=== PATIENT | female | born 1980 | race Caucasian/White ===

== ENCOUNTER 2020-05-30 11:14 | Outpatient (REF) | payer OTHER, SELFPAY ==
[2020-07-04 12:21] LABS: Thin Prep Source Cervix
[2020-07-09 14:06] LABS: HPV mRNA E6/E7 Not Detected
== END 2020-05-30 11:15 | disposition home or self-care (01) ==
LOC: HO.LAB 11:14
PROVIDERS: PCP Internal Medicine; Visit Provider Obstetrics & Gynecology
DX: Z01.419 Encounter for gynecological examination (general) (routine) without abnormal findings (principal); R23.2 Flushing
CPT/HCPCS: 36415; 87624; 87625; 88141; 88142

== ENCOUNTER 2020-05-31 10:40 | Outpatient (REF) | payer OTHER, SELFPAY ==
[2020-05-31 12:30] LABS: Thyroid Stimulating Hormone 2.26 uIU/mL (0.32-4.0)
[2020-06-01 09:42] LABS: Follicle Stimulating Hormone 4.3 mIU/mL; Lutenizing Hormone 7.3 mIU/mL
== END 2020-05-31 10:41 | disposition home or self-care (01) ==
LOC: HO.LAB 10:40
PROVIDERS: PCP Internal Medicine; Visit Provider Obstetrics & Gynecology
DX: R23.2 Flushing (principal)
CPT/HCPCS: 36415; 83001; 83002; 84443

== ENCOUNTER 2020-08-15 16:28 | Outpatient (REF) | payer OTHER, SELFPAY ==
--- NOTE | ~2020-08-15 | MM_ITS ---
EXAMINATION: MM SCREENING DIGITAL BREAST TOMOSYNTHESIS, BILATERAL CLINICAL INFORMATION: Screening. Asymptomatic. The lifetime risk of breast cancer based on the Tyrer-Cuzick Model is 12.3%. COMPARISON: Mammography: None TECHNIQUE: Digital breast tomosynthesis is performed in both the craniocaudal and mediolateral oblique views along with computer-aided detection (CAD). Synthesized 2D images are generated from the tomosynthesis. FINDINGS: There are scattered areas of fibroglandular density (ACR BI-RADS breast composition Category b). There are no significant masses, abnormal calcifications, or other abnormalities. Scattered skin calcifications are seen bilaterally. MM/MM tomosynthesis screening BI IMPRESSION: No specific mammographic evidence to suggest malignancy. ASSESSMENT: BI-RADS 1: Negative RECOMMENDATION: Routine annual mammography screening. This patient's information was entered into a reminder system with a target due date for their next mammogram.
== END 2020-08-15 16:29 | disposition home or self-care (01) ==
LOC: HO.MAMMO 16:28
PROVIDERS: Visit Provider Obstetrics & Gynecology
DX: Z12.31 Encounter for screening mammogram for malignant neoplasm of breast (principal)
CPT/HCPCS: 77063; 77067

== ENCOUNTER 2021-03-17 14:10 | Outpatient (REF) | payer OTHER, SELFPAY ==
[2021-03-18 03:55] LABS: CT PCR NOT DETECTED (Not Detect.); NG PCR NOT DETECTED (Not Detect.)
[2021-03-18 11:11] LABS: BV Int Neg Control Negative (Negative); BV Int Pos Control Positive (Positive)
== END 2021-03-17 14:11 | disposition home or self-care (01) ==
LOC: HO.LAB 14:10
PROVIDERS: PCP Internal Medicine; Visit Provider Obstetrics & Gynecology
DX: Z11.3 Encounter for screening for infections with a predominantly sexual mode of transmission (principal); N90.89 Other specified noninflammatory disorders of vulva and perineum
CPT/HCPCS: 87480; 87491; 87510; 87591; 87660; 99212

== ENCOUNTER 2021-03-21 10:01 | Outpatient (AMB) | payer OTHER, SELFPAY ==
[2021-03-21 10:01] VITALS: BP 122/70; PULSE 96; TEMP 36.3; O2SAT 98; BMI 34.9
--- NOTE | 2021-03-21 10:01 | MHC.PC.OV ---
Vital Signs 03/21/21 10:01 Height 5 ft 2 in Weight 191 lb BMI 34.9 BP 122/70 Pulse 96 Pulse Source Pulse Oximeter Temp 97.4 F Pulse Oximetry (%) 98 Oxygen Delivery Method Room Air Intake Visit Reasons: anxiety/ panic attacks Childcare Center Administrator Required: No Accompanied by: Self / Same As Patient Allergies lorazepam Adverse Reaction (Intermediate, Verified 02/12/23 17:18) increased nausea Medication List - Last Reconciled 03/21/21 by Zhang Decker MD hydroxyzine HCl Take 1 to 2 tablets PO 3 times a day PRN; 30 days metronidazole 500 mg PO BID 7 days mirtazapine 15 mg PO BEDTIME 30 days terconazole 0.8% 1 appful vaginal BEDTIME 3 days Tobacco use date assessed: 03/21/21 HPI anxiety/ panic attacks HPI Details Patient comes in today for a follow up visit - has not been back since October 2019 Has had a couple of incidents of pilonidal cyst/abscess since and ended up going to the ER at the end of December 2020 for the same issue that required I & D States that she continues to break out often and currently has another pilonidal cyst for about a week now Adds that she has been experiencing increased anxiety lately and has had a couple of episodes of panic attacks over the past few days Was on Mirtazapine 15 mg Q HS and Lorazepam PRN in the past but states that she is on no Rx currently other than Flagyl and Terconazole vaginal cream that were prescribed by [facility] about a week ago - is not really sure why she is no longer taking these Rx but recalls that she feels very nauseous every time she takes Lorazepam Reports (+) recurrent headaches as well lately - has (+) Hx of migraine headaches and used to take Topiramate at bedtime for BAH prophylaxis Denies any dizziness Denies any chest pains, no SOB No nausea/vomiting, no abdominal pain No change in bowel habits noted [facility] Medical History (Updated 02/13/23 @ 04:51 by Zhang Decker MD) Anxiety Migraine Obesity (BMI 30-39.9) Smoker Hidradenitis suppurativa Sacroiliac joint dysfunction Panic attack Tinea versicolor Surgical History History of excision of pilonidal cyst (~08/12/21) H/O rectal sphincterotomy History of bilateral tubal ligation History of Family History Maternal Grandmother Breast cancer Other Mental health problem Substance abuse Social History Housing: Apartment Alcohol intake: never Patient Tobacco Use Status: Current everyday Tobacco user Tobacco use type: Cigar Cigarettes Per Day: 10 e-Cigarette/Vaping Use: Never Used Second Hand Smoke Exposure: Yes service: No Current occupational status: employed Sexual orientation: Straight/Heterosexual Gender identity: Female Cognitive needs: No Hearing needs: No Vision needs: No Questionnaire PHQ-9 Over the last 2 weeks, how often have you been bothered by any of the following problems? 1. Little interest or pleasure in doing things: not at all 2. Feeling down, depressed, or hopeless: not at all 3. Trouble falling or staying asleep, or sleeping too much: not at all 4. Feeling tired or having little energy: not at all 5. Poor appetite or overeating: not at all 6. Feeling bad about yourself - or that you are a failure or have let yourself or your family down: not at all 7. Trouble concentrating on things, such as reading the newspaper or watching television: not at all 8. Moving or speaking so slowly that other people could have noticed. Or the opposite - being so fidgety or restless that you have been moving around a lot more than usual: not at all 9. Thoughts that you would be better off or of hurting yourself in some way: not at all Total score: 0 Depression Screening Interpretation: Negative 30149 - PHQ-9 Billing: Yes Source: Developed by Drs. Boom Odonnell, Vanessa Taylor, Roland Arreola and colleagues, with an educational shane from [employer]. Thrive Questionnaire Date Thrive assessed: 03/21/21 I am a: Patient What is your living situation today?: I have a steady place to live Within the past 12 months, did the food you bought not last and you didn't have the money to get more?: Never true Within the past 12 months, did you worry whether your food would run out before you got money to buy more?: Never true Do you have trouble paying for medicines?: No Do you have trouble getting transportation to medical appointments?: No Do you have trouble paying your heating and electricity bill?: No Do you have trouble taking care of your child, family member or friend?: No Do you have trouble with day-to-day activities such as bathing, preparing meals, shopping, managing finances, etc.?: No Are you currently unemployed and looking for a job?: No Are you interested in more education?: No Currently or been in a relationship where the following occur: no concerns reported AUDIT C Alcohol Use Questionnaire (AUDIT-C) 1. How often do you have a drink containing alcohol?: Never 3. How often do you have six or more drinks on one occasion?: Never Total Score: 0 Score Reviewed/Action Taken: Yes EMELIA-7 AMB Questionnaire EMELIA-7 Date EMELIA - 7 assessed: 03/21/21 Feeling nervous, anxious, or on edge: 3 = Nearly every day Not being able to stop or control worryin = Nearly every day Worrying too much about different things: 3 = Nearly every day Trouble relaxin = Nearly every day Being so restless that it is hard to sit still: 3 = Nearly every day Becoming easily annoyed or irritable: 3 = Nearly every day Feeling afraid as if something awful might happen: 3 = Nearly every day Total EMELIA-7 score (0-4 normal; 5-9 mild; 10-14 moderate; 15-21 severe): 21 Source: Developed by Drs. Boom Odonnell, Vanessa Taylor, Roland Arreola and colleagues, with an educational shane from [employer]. Review of Systems Const Denies chills, Reports fatigue, Denies fever(s) and Reports headache(s) (recurrent) ENT Reports headache(s) (recurrent), Denies odynophagia, Denies sinus pain and Denies sore throat Card Denies chest pain, Denies palpitations and Denies dyspnea Resp Denies cough and Denies dyspnea GI Denies abdominal pain, Denies constipation, Denies heartburn, Denies diarrhea and Denies odynophagia Denies difficulty voiding, Denies nocturia and Denies dysuria Skin/Breast Details: recurrent pilonidal cyst/abscess - currently has a cyst for about a week now Neuro Reports headache(s) (recurrent) Psych Reports anxiety and Reports panic attacks Endo Reports fatigue and Denies palpitations Physical exam (Primary Care) Vital Signs: Last Vital Signs Temp 97.4 F 03/21/21 10:01 Pulse 96 03/21/21 10:01 BP 122/70 03/21/21 10:01 Pulse Ox 98 03/21/21 10:01 Oxygen Delivery Method Room Air 03/21/21 10:01 BMI result Body Mass Index 34.9 Tobacco/Smoking Status: Tobacco use Status Tobacco use date assessed 03/21/21 03/21/21 10:06 Patient Tobacco Use Status Current everyday Tobacco 03/21/21 10:06 PHQ-9: PHQ-9 Score PHQ-9: Total score 0 03/21/21 12:38 Depression Screening Interpretation: Negative Thrive Assessment: Date of Thrive Assessment Date Thrive assessed 03/21/21 03/21/21 10:06 Currently or been in a relationship where the following occur: no concerns reported Const General: no acute distress and alert HENMT Ears: TM's normal bilaterally Throat: Yes posterior oropharynx normal and Yes tonsils normal (no TP congestion noted) Neck Neck: Yes no lymphadenopathy and Yes supple Resp Auscultation: clear to auscultation bilaterally, no rales and no wheezes Cardio Rate: regular rate Rhythm: regular rhythm Heart sounds: no murmurs GI Palpation (GI): Soft to palpation, nontender and No hepatosplenomegaly present Extrem General: Yes no clubbing, cyanosis or edema Office Procedures Flu Questionnaire Does the patient have a severe egg allergy?: No Does the patient have severe life threatening allergies?: No Does the patient have a fever or illness today?: No Has the patient ever had Guillain-Sligo Syndrome?: No Has the patient ever had any past reaction to a flu shot?: No Comment: Patient states she received flu vaccine 2020 at [facility] Immunizations flu vacc [id number] 6mos up(PF) 60 mcg(15 mcgx4)/0.5 mL IM syringe Performing Provider: Zhang Decker MD [facility] Documented (not given) by: CHIDI Sanchez on 03/21/21 10:07 Reason Not Given: Received Previously Assessment and Plan Assessment & Plan (1) Chronic recurrent pilonidal cyst: Code(s): L05.91 - Pilonidal cyst without abscess Plan: Will refer her to surgery for consideration for I & D of her current pilonidal abscess (2) Migraine: Code(s): G43.909 - Migraine, unspecified, not intractable, without status migrainosus Qualifiers: Migraine type: unspecified Status migrainosus presence: without status migrainosus Intractability: not intractable Qualified Code(s): G43.909 - Migraine, unspecified, not intractable, without status migrainosus Plan: Reinforced avoidance of migraine triggers Will hold off on starting prophylactic Tx and can continue taking Ibuprofen PRN for now (3) Anxiety: Code(s): F41.9 - Anxiety disorder, unspecified Plan: Will start patient on Mirtazapine 15 mg Q HS and Hydroxyzine 25 mg 1 to 2 tablets TID PRN for her anxieyt (4) Smoker: Code(s): F17.200 - Nicotine dependence, unspecified, uncomplicated Plan: Counseled again on smoking cessation (5) Obesity (BMI 30-39.9): Code(s): E66.9 - Obesity, unspecified Plan: Reinforced diet/exercise as tolerated/lose weight Plan To return in 4 months for her annual physical examination Orders: Orders Influenza [id number] Immunization 03/21/21 Z23 - Encounter for immunization Referrals General Surgery Referral L05.91 - Pilonidal cyst without abscess Medications: New mirtazapine 15 mg PO BEDTIME 30 tabs 3RF 30 days hydroxyzine HCl Take 1 to 2 tablets PO 3 times a day PRN; 120 tabs 2RF anxiety 30 days Coding Level of Care Code Est Pt Level 4 (17171) Diagnoses Chronic recurrent pilonidal cyst L05.91 Migraine without status migrainosus, not intractable, unspecified migraine type G43.909 Migraine type: unspecified Status migrainosus presence: without status migrainosus Intractability: not intractable Anxiety F41.9 Smoker F17.200 Obesity (BMI 30-39.9) E66.9 Additional Codes PHQ-9 - 71665 - PHQ-9 Billing: Yes ([id number])
== END 2021-03-21 10:38 | disposition home or self-care (01) ==
LOC: HO.HMGH 10:01
PROVIDERS: PCP Internal Medicine; Visit Provider Internal Medicine
DX: L05.91 Pilonidal cyst without abscess (principal); G43.909 Migraine, unspecified, not intractable, without status migrainosus; F41.9 Anxiety disorder, unspecified; F17.210 Nicotine dependence, cigarettes, uncomplicated; Z23 Encounter for immunization; F17.200 Nicotine dependence, unspecified, uncomplicated; E66.9 Obesity, unspecified
CPT/HCPCS: 99214

== ENCOUNTER → 2021-04-22 15:14 | Outpatient (BNVA) | payer OTHER, SELFPAY | PROVIDERS: PCP Internal Medicine; Referring Provider Internal Medicine; Visit Provider Surgery | DX: L73.2 Hidradenitis suppurativa (principal) | CPT/HCPCS: 99202 ==

== ENCOUNTER 2021-05-20 11:30 | Outpatient (REF) | payer OTHER, SELFPAY ==
[2021-05-20 14:49] LABS: Binax Internal Control QC Valid; Binax Lot number: 9864; Binax Now Covid-19 Ag Negative (Negative)
== END 2021-05-20 11:31 | disposition home or self-care (01) ==
LOC: HO.LAB 11:30
PROVIDERS: Visit Provider Internal Medicine
DX: Z20.822 Contact with and (suspected) exposure to COVID-19 (principal)
CPT/HCPCS: 36415; C9803

== ENCOUNTER → 2021-06-26 09:45 | Outpatient (BNVA) | payer OTHER, SELFPAY | PROVIDERS: PCP Internal Medicine; Referring Provider Internal Medicine; Visit Provider Surgery | DX: L05.01 Pilonidal cyst with abscess (principal) | CPT/HCPCS: 99202 ==

== ENCOUNTER 2021-08-12 05:55 | Day surgery (SDC) | payer OTHER, SELFPAY ==
[2021-08-07 10:02] VITALS: BMI 36.0
--- NOTE | 2021-08-11 09:21 | HO.ANESPROP2 ---
Documented by User: Ronda Thompson NP 08/11/21 09:22 HPI - Anesthesia Eval Consult details Narrative: 41yo F for Excision Pilonidal Cyst,sacrococcygeal area PMFSH Active Problems Active Problems: All Active Problems (Updated 06/11/21 @ 17:01 by Sarah Olvera CNP) Cyst, pilonidal, with abscess (Acute) Hidradenitis axillaris (Acute) Chronic recurrent pilonidal cyst (Acute) Bacterial vaginosis (Acute) Vulvar lesion (Acute) Hot flashes (Acute) Well woman exam (Acute) Past Medical History Medical History Panic attack Sacroiliac joint dysfunction Tinea versicolor Family History Family History Maternal Grandmother Breast cancer Other Mental health problem Substance abuse Surgical History Surgical History H/O rectal sphincterotomy History of bilateral tubal ligation History of Social History Social History Housing: Apartment Alcohol intake: never Patient Tobacco Use Status: Current everyday Tobacco user Tobacco use type: Cigar Cigarettes Per Day: 10 Second Hand Smoke Exposure: Yes Use of substances other than those prescribed or required for medical reasons: No Are you DNR?: No Advance Directives: No Advance Directives Information Provided: Yes Recently lost weight without trying: No Nutrition Risks: No Nutritional Risk Patient : No (tubal ligation) service: No Current occupational status: employed Sexual orientation: Straight/Heterosexual Gender identity: Female Meds Allergies Allergy/AdvReac Type Severity Reaction Status Date / Time lorazepam AdvReac Intermediate increased Verified 06/26/21 10:02 nausea Exam Exam Date and Time: August 11, 2021 0921 Height,Weight and Vital Signs: Height 5 ft 2 in Weight 89.358 kg Assessment and Plan Assessment Anesthesia Assessment: Chart Reviewed Documented by User: Safia Marks MD 08/12/21 07:11 PMFSH Past Medical History Medical History Panic attack Sacroiliac joint dysfunction Tinea versicolor Family History Family History Maternal Grandmother Breast cancer Other Mental health problem Substance abuse Family history of problems with anesthesia: No Surgical History Surgical History H/O rectal sphincterotomy History of bilateral tubal ligation History of History of Problems with Anesthesia: No Social History Social History Housing: Apartment Alcohol intake: never Patient Tobacco Use Status: Current everyday Tobacco user Tobacco use type: Cigar Cigarettes Per Day: 10 Second Hand Smoke Exposure: Yes Use of substances other than those prescribed or required for medical reasons: No Are you DNR?: No Advance Directives: No Advance Directives Information Provided: Yes Recently lost weight without trying: No Nutrition Risks: No Nutritional Risk Patient : No (tubal ligation) service: No Current occupational status: employed Sexual orientation: Straight/Heterosexual Gender identity: Female Meds Allergies Allergy/AdvReac Type Severity Reaction Status Date / Time lorazepam AdvReac Intermediate increased Verified 06/26/21 10:02 nausea Exam Airway Mallampati Class: III TM Dist: >3cm Neck ROM: Full Assessment and Plan Assessment Anesthesia Assessment: Anesthesia Plan Discussed and Smoking Cess. Discussed Final Anesthetic Review Family History of Problems with Anesthesia: No History of Problems with Anesthesia: No NPO: Yes ASA Class: II Final Preanesthetic Review: No Changes in Pt Med Stat, Meds/Allgs Chart Reviewed and Consent Obtained/Reviewed Patient Risk: Intermediate Procedure Risk: Low Anesthetic Plan Anesthetic Plan: GA Disposition: Standard PACU
[2021-08-12] VITALS (8 sets, daily range): BP systolic 107–156; BP diastolic 66–87; PULSE 69–79; RESP 16–18; TEMP 36.3–37.3; O2SAT 98–100; BMI 36.6
[2021-08-12] MEDS: Lactated Ringers 1,000 ML 100 ML IVCONT (06:35)
--- NOTE | 2021-08-12 07:22 | P.HPSUR_ITS ---
Pre-Procedural Eval Section A Date of Service: 08/12/21 Section B Chief Complaint: pilonidal cyst with abscess Details of Present Illness: has has an abscess requring I and D, now here for formal excision of pilonidal cyst Relevant Family History (Specify if Yes): No Relevant Social History: None Present Medications: see Short Stay Collaborative assessment Medical History: No relevant PMH History of Previous Operations: No relevant previous surgery Allergies: Allergies Allergy/AdvReac Type Severity Reaction Status Date / Time lorazepam AdvReac Intermediate increased Verified 06/26/21 10:02 nausea Review of Systems Sugical H&P ROS: Negative: Constitution, Cardiovascular, Respiratory, Neurological, Psychiatric, Hem-Onc, Allergic/Immunologic, Gastrointestinal, Genitourinary, Musculoskeletal, Integumentary, Endocrine and Ey es/Ears/Nose/Throat Exam Surgical H&P Exam: Normal: HEENT, Normal: Heart, Normal: Lungs, Normal: Extremities, Normal: Abdomen, Normal: Skin and Normal: Neurological Exam Comment: pilonidal cyst sacrococcygeal area Plan Diagnosis/Plan: Unchanged I have reviewed the history and physical and performed a pertinent physical examination on my patient. No changes have occurred unless specified.
[2021-08-12] MEDS: Scopolamine 1.5 MG PATCH.TD.3 TRANSDERMA (07:35)
--- NOTE | 2021-08-12 08:28 | W.PM.OPN ---
Operative Note Operative Note Date of Service: 08/12/21 Narrative: Preop diagnosis: Pilonidal cyst, sacrococcygeal area Postop diagnosis: The same Procedure: Excision of pilonidal cyst sacrococcygeal area Surgeon: Giancarlo Vasquez MD Patient is a 41-year-old female was had an abscess on the sacrococcygeal area requiring I&D. She was seen in the office and she was noted have midline pits and an induration to the right of the midline in the sacrococcygeal area. I recommended formal excision to prevent recurrences.. She understood the technique of the procedure. She was aware of the risks, benefits, and alternatives. She was brought to the operating room and placed in prone position under general anesthesia via endotracheal tube. The buttocks were retracted with wide tape laterally. The sacrococcygeal area is prepped draped usual sterile fashion. A surgical time-out was done. The patient received cefazolin 2 g IV preoperatively. I infiltrated my planned line of incision with lidocaine 1%. I made my elliptical incision of surrounding the old I and D are to the right and around the midline pits in the gluteal cleft using blade 15. I carried down this incision through the full-thickness of skin and subcutaneous fat to excise the entire indurated area. This was sent as specimen. I cauterized oozing areas to achieve hemostasis. I then copiously irrigated. The excised area was about 7 cm long by about 4 cm wide. Once hemostasis was confirmed, I proceeded to develop flaps on both sides to achieve closure without tension. I therefore undermined subcutaneous layer. I then reapposed the thick subcutaneous layer with Dexon 3-0 interrupted sutures. Skin closure was achieved with alternating nylon 2-0 simple says interrupted sutures and vertical mattress sutures. The incision was infiltrated with Marcaine 0.25% for postop analgesia. Dressings were applied. The procedure was then completed. The patient tolerated procedure well. There were no complications noted . Initial final counts of sponges and instruments were correct. Estimated blood loss about 20 cc The patient was extubated without difficulty and transferred to the recovery room with stable vital signs.
[2021-08-12] MEDS: Acetaminophen 325 MG TABLET 650 MG PO (09:25)
[2021-08-12] MEDS: oxyCODONE HCl Immed Release 5 MG TABLET PO (09:26)
[2021-08-12] MEDS: Ketorolac Tromethamine 30 MG/ML VIAL 15 MG IVPUSH (09:28)
== END 2021-08-12 10:12 | disposition home or self-care (01) ==
PROVIDERS: PCP Internal Medicine; Visit Provider Surgery
PROC: (CPT 11771; principal; 2021-08-12 07:30)
DX: L05.01 Pilonidal cyst with abscess (principal); M53.3 Sacrococcygeal disorders, not elsewhere classified; B36.0 Pityriasis versicolor; F41.0 Panic disorder [episodic paroxysmal anxiety]; Z79.899 Other long term (current) drug therapy; F17.210 Nicotine dependence, cigarettes, uncomplicated; Z88.8 Allergy status to other drugs, medicaments and biological substances
CPT/HCPCS: 11771; 88304; J0690; J1100; J1885; J2250; J2405; J3010

== ENCOUNTER → 2021-08-25 10:12 | Outpatient (BNVA) | payer OTHER, SELFPAY | PROVIDERS: PCP Internal Medicine; Referring Provider Internal Medicine; Visit Provider Surgery | DX: Z09 Encounter for follow-up examination after completed treatment for conditions other than malignant neoplasm (principal); Z87.2 Personal history of diseases of the skin and subcutaneous tissue | CPT/HCPCS: 99212 ==

== ENCOUNTER 2021-11-26 13:35 | Outpatient (REF) | payer OTHER, SELFPAY | END 2021-11-26 13:36 | disposition home or self-care (01) | LOC: HO.LAB 13:35 | PROVIDERS: Visit Provider Obstetrics & Gynecology | DX: N76.4 Abscess of vulva (principal) | CPT/HCPCS: 10060; 56405; 87071; 87077; 87186; 87205; 99212 ==

== ENCOUNTER → 2022-01-27 10:47 | Outpatient (BNVA) | payer OTHER, SELFPAY | PROVIDERS: PCP Internal Medicine; Visit Provider Obstetrics & Gynecology | DX: N76.4 Abscess of vulva (principal); L73.2 Hidradenitis suppurativa | CPT/HCPCS: 99212 ==

== ENCOUNTER 2023-01-29 11:36 | Outpatient (AMB) | payer OTHER, SELFPAY ==
--- NOTE | 2023-01-29 11:45 | MHC.OFFVIS ---
Intake Vital Signs 01/29/23 11:49 Height 5 ft 3 in Weight 194 lb BMI 34.4 BP 120/74 Intake Visit Reasons: Pelvic pain Intake Note: The patient agreed to use of a medical coder during this encounter. Scribed for JERRICA Barth by Radha Pearce medical coder, on 01/29/2023 at 12:00 pm EST Vessel Captain Required: No Information Interpreted: non-clinical & clinical Network Intelligence Analyst: Network Intelligence Analyst Present (Jessica Brewer CHIDI) Accompanied by: Self / Same As Patient Allergies lorazepam Adverse Reaction (Intermediate, Verified 01/29/23 11:49) increased nausea HPI HPI Comments History of Present Illness Details She presents with complaints of vaginal pain and burning for the past 2 days. Also reports some pelvic pain. Reports her vagina feels swollen with intimacy. States she noticed a light pink discharge after intimacy with urination, x1 episode. Admits to pain with certain movements. Has Mirena IUD for cycle control. Denies bleeding, odors and discharge. Admits to hx of constipation, denies constipation currently. [facility] Medical History Sacroiliac joint dysfunction Panic attack Tinea versicolor Surgical History History of excision of pilonidal cyst (~08/12/21) H/O rectal sphincterotomy History of bilateral tubal ligation History of Family History Maternal Grandmother Breast cancer Other Mental health problem Substance abuse Social History Housing: Apartment Alcohol intake: never Patient Tobacco Use Status: Current everyday Tobacco user Tobacco use type: Cigar Cigarettes Per Day: 10 Second Hand Smoke Exposure: Yes service: No Current occupational status: employed Sexual orientation: Straight/Heterosexual Gender identity: Female Female Reproductive History Menstrual control method: progestin IUCD Review of Systems Const All systems reviewed & are unremarkable except as noted in HPI and below Reports pelvic pain Physical Exam Vital Signs: Last Vital Signs BP 120/74 01/29/23 11:49 BMI result Body Mass Index 34.4 Const General: cooperative, no acute distress, well developed and alert External Female Exam: normal external appearance Speculum Exam - Vagina: normal appearance of the vagina, abnormal vaginal discharge (chunky, white adherent discharge mixed with pink bloody mucous), erythematous (inflamation-edema) and other (pain with insertion of speculum) Speculum Exam - Cervix: normal appearance of the cervix and Other cervical findings present (IUD strings visible) Bimanual exam- vagina & uterus: normal bimanual exam, uterine size normal, uterine shape normal and non-tender Bimanual Exam- Adnexa, other: normal adnexae and no masses Results AMB Test Urine AMB Test Urine Negative Last Edit by Jessica Brewer CMA on 01/29/23 11:54 Results Reviewed Results Reviewed: Laboratory Last Values [facility] Clinic Negative 01/29/23 11:53 Assessment & Plan Assessment & Plan (1) Acute vaginitis: Code(s): N76.0 - Acute vaginitis Plan: Sx consistent with yeast infection. Rx for Diflucan sent to pharmacy. Instructions given to patient. Pelvic rest. No intimacy until sx resolve. Stay well hydrated. Contact office if sx do not improve for further evaluation and possible US. Due for Mirena exchange, will schedule at next visit. (2) Pelvic pain in female: Code(s): R10.2 - Pelvic and perineal pain Orders: Orders Bacterial Vaginosis Panel Today N76.0 - Acute vaginitis AMB HCG Urine Test Today Z32.02 - Encounter for test, result negative CT NG by PCR Today N76.0 - Acute vaginitis Medications: New fluconazole (Diflucan) may repeat dose in one week if symptoms do not resolve 150 mg PO ONCE 1 day PRN 2 tabs 0RF personal Coding Level of Care Code Est Pt Level 3 (75287) Diagnoses Acute vaginitis N76.0 Pelvic pain in female R10.2
[2023-01-29 11:49] VITALS: BP 120/74; BMI 34.4
== END 2023-01-29 12:12 | disposition home or self-care (01) ==
PROVIDERS: PCP Internal Medicine; Visit Provider Advanced Practice Midwife
DX: N76.0 Acute vaginitis (principal); R10.2 Pelvic and perineal pain; Z32.02 Encounter for pregnancy test, result negative
CPT/HCPCS: 99213

== ENCOUNTER 2023-01-29 11:36 | Outpatient (REF) | payer OTHER, SELFPAY ==
[2023-01-29 20:53] LABS: CT PCR NOT DETECTED (Not Detect.); NG PCR NOT DETECTED (Not Detect.)
[2023-01-30 12:50] LABS: BV Int Neg Control Negative (Negative); BV Int Pos Control Positive (Positive)
== END 2023-01-29 11:37 | disposition home or self-care (01) ==
LOC: HO.LNP 11:36
PROVIDERS: PCP Internal Medicine; Visit Provider Advanced Practice Midwife
DX: N76.0 Acute vaginitis (principal); R10.2 Pelvic and perineal pain
CPT/HCPCS: 0353U; 81025; 87480; 87510; 87660; 99212

== ENCOUNTER 2023-02-12 16:52 | Outpatient (AMB) | payer OTHER, SELFPAY ==
[2023-02-12 16:57] VITALS: BP 122/80; PULSE 80; O2SAT 96; BMI 32.5
--- NOTE | 2023-02-12 16:57 | A.OFFPC_ITS ---
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 Accompanied by: Self / Same As Patient Allergies lorazepam Adverse Reaction (Intermediate, Verified 02/12/23 17:18) increased nausea Medication List - Last Reconciled 02/12/23 by Zhang Decker MD fluconazole (Diflucan) 150 mg PO ONCE PRN 1 day levonorgestrel (Mirena) intrauterine terconazole 0.4% 1 appful vaginal BEDTIME 7 days Tobacco use date assessed: 02/12/23 Dental Screening Dental Screen Date: 02/12/23 Did you have a dental visit in the last 12 months?: No Did you have a dental problem in the last 6 months where you did not have access to dental care?: No Was dental information given to patient?: Patient has dentist HPI PE-abscess on inner thigh HPI Details Patient comes in today for her annual physical examination - was last seen by me almost 2 years ago in 03/2021 States that she has been experiencing a recurrent break out of perivaginal and perineal abscess and hidradenitis for the past few months Currently has some painful lesions just beside her vaginal area bilaterally as well as over the suprapubic area Has been seeing Dr. Jim, who has treated her with a few separate courses of antibiotics but often only with temporary relief of her symptoms and she has been advised (and referred) to see dermatology, who has reportedly gave her similar advice and recommendations given by Dr. Jim Recalls that she had a similar bout with pilonidal abscess last year and that her issues were finally resolved when she was referred to Dr. Vasquez and had I & D done on her abscess - is wondering if she can be referred again to Dr. Vasquez and he can help clear these up for her Adds that she has been experiencing brief but repeated bout of lightheadedness at night lately - states that these would tend to occur about 5 nights out a week and always at night Notes that her blood pressure would be around 90/50 during these episodes when she checks it She would then just lie down and stay in bed and her symptoms would gradually ease up after a few minutes Feels that she eats well (has been trying to eat healthier) and states that she does drink a lot of fluids so she does not think she is dehydrated Relates that she does feel fatigued often; denies any headaches Denies any chest pains or palpitations; no SOB noted No nausea/vomiting, no abdominal pain No change in bowel habits noted Denies any dysuria but reports (+) urinary frequency and sometimes also has nocturia She has not had an annual mammogram done since August 2020 and is scheduled to see gynecology at the end of next month (February 2023) to have her Mirena removed and also for her annual pap smear and 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 [facility] Medical History (Updated 02/12/23 @ 19:51 by Zhang Decker MD) Obesity (BMI 30-39.9) Smoker Hidradenitis suppurativa Sacroiliac joint dysfunction Panic attack Tinea versicolor Surgical History History of excision of pilonidal cyst (~08/12/21) H/O rectal sphincterotomy History of bilateral tubal ligation History of Family History Maternal Grandmother Breast cancer Other Mental health problem Substance abuse Social History Housing: Apartment Alcohol intake: never Patient Tobacco Use Status: Current everyday Tobacco user Tobacco use type: Cigar Cigarettes Per Day: 10 e-Cigarette/Vaping Use: Never Used Second Hand Smoke Exposure: Yes service: No Current occupational status: employed Sexual orientation: Straight/Heterosexual Gender identity: Female Cognitive needs: No Hearing needs: No Vision needs: No Questionnaire PHQ-9 Over the last 2 weeks, how often have you been bothered by any of the following problems? 1. Little interest or pleasure in doing things: not at all 2. Feeling down, depressed, or hopeless: not at all 3. Trouble falling or staying asleep, or sleeping too much: not at all 4. Feeling tired or having little energy: not at all 5. Poor appetite or overeating: not at all 6. Feeling bad about yourself - or that you are a failure or have let yourself or your family down: not at all 7. Trouble concentrating on things, such as reading the newspaper or watching television: not at all 8. Moving or speaking so slowly that other people could have noticed. Or the opposite - being so fidgety or restless that you have been moving around a lot more than usual: not at all 9. Thoughts that you would be better off or of hurting yourself in some way: not at all Total score: 0 Depression Screening Interpretation: Negative 01296 - PHQ-9 Billing: Yes Source: Developed by Drs. Boom Odonnell, Vanessa Taylor, Roland Arreola and colleagues, with an educational shane from [employer]. Thrive Questionnaire Date Thrive assessed: 02/12/23 I am a: Patient What is your living situation today?: I have a steady place to live Within the past 12 months, did the food you bought not last and you didn't have the money to get more?: Never true Within the past 12 months, did you worry whether your food would run out before you got money to buy more?: Never true Do you have trouble paying for medicines?: No Do you have trouble getting transportation to medical appointments?: No Do you have trouble paying your heating and electricity bill?: No Do you have trouble taking care of your child, family member or friend?: No Do you have trouble with day-to-day activities such as bathing, preparing meals, shopping, managing finances, etc.?: No Are you currently unemployed and looking for a job?: No Are you interested in more education?: No Please select the resources that you would like help with: None Currently or been in a relationship where the following occur: no concerns reported AUDIT C Alcohol Use Questionnaire (AUDIT-C) 1. How often do you have a drink containing alcohol?: Never 3. How often do you have six or more drinks on one occasion?: Never Total Score: 0 Score Reviewed/Action Taken: Yes EMELIA-7 AMB Questionnaire EMELIA-7 Date EMELIA - 7 assessed: 02/12/23 Feeling nervous, anxious, or on edge: 3 = Nearly every day Not being able to stop or control worryin = Nearly every day Worrying too much about different things: 3 = Nearly every day Trouble relaxin = Nearly every day Being so restless that it is hard to sit still: 3 = Nearly every day Becoming easily annoyed or irritable: 3 = Nearly every day Feeling afraid as if something awful might happen: 3 = Nearly every day Total EMELIA-7 score (0-4 normal; 5-9 mild; 10-14 moderate; 15-21 severe): 21 Source: Developed by Drs. Boom Odonnell, Vanessa Taylor, Roland Arreola and colleagues, with an educational shane from [employer]. EMELIA-7 Assessment Billing EMELIA-7 Assessment Tool: EMELIA-7 Assessment 63575 Review of Systems Const Denies chills, Reports fatigue, Denies fever(s), Denies headache(s) and Denies malaise Eyes Denies blurry vision, Denies change in vision, Denies irritation and Denies itchy eyes ENT Denies dysphagia, Denies dizziness (but reports recurrent lightheadedness at night - see HPI), Denies otalgia, Denies headache(s), Denies nasal congestion, Denies neck pain, Denies odynophagia, Denies sinus pain and Denies sore throat Card Denies chest pain, Denies rapid heart rate, Denies irregular heart rhythm, Denies palpitations and Denies dyspnea Resp Denies chest congestion, Denies cough, Denies dyspnea and Denies wheezing GI Denies abdominal pain, Denies bloating, Denies constipation, Denies dysphagia, Denies heartburn, Denies diarrhea, Denies nausea, Denies odynophagia and Denies vomiting Denies hematuria, Denies urinary frequency, Reports nocturia (at times), Denies dysuria, Denies urinary incontinence and Denies urinary urgency Musc Denies back pain, Denies arthralgias, Denies joint swelling, Denies muscle weakness and Denies neck pain Skin/Breast Details: (+) recurrent multiple painful boils and abscesses over the perineal, perivaginal , inguinal and suprapubic areas over the past few months Denies breast pain, Denies breast mass, Denies change in pigmentation, Reports lesions, Denies rash and Denies unusual bruising Neuro Denies dizziness (but reports recurrent lightheadedness at night - see HPI), Denies headache(s) and Denies paresthesias Psych Denies anxiety and Denies depression Endo Reports fatigue and Denies palpitations Narinder/Lymph Denies easy bruising Aller/Immun Denies itchy eyes and Denies wheezing Physical exam (Primary Care) Vital Signs: Last Vital Signs Pulse 80 02/12/23 16:57 BP 122/80 02/12/23 16:57 Pulse Ox 96 02/12/23 16:57 Oxygen Delivery Method Room Air 02/12/23 16:57 BMI result Body Mass Index 32.5 Tobacco/Smoking Status: Tobacco use Status Tobacco use date assessed 02/12/23 02/12/23 17:02 Patient Tobacco Use Status Current everyday Tobacco 02/12/23 17:02 Tobacco use type Cigar 02/12/23 17:02 e-Cigarette/Vaping Use Never Used 02/12/23 17:02 PHQ-9: PHQ-9 Score PHQ-9: Total score 0 02/12/23 17:22 Depression Screening Interpretation: Negative Thrive Assessment: Date of Thrive Assessment Date Thrive assessed 02/12/23 02/12/23 17:02 Currently or been in a relationship where the following occur: no concerns reported Const General: no acute distress, alert and awake Orientation/consciousness: patient oriented x3 HENMT Head: Yes normocephalic and Yes atraumatic Ears: external ears normal, TM's normal bilaterally and EAC's normal General nose exam: No nasal discharge present Face and sinus: Yes normal facial exam and Yes sinuses nontender Teeth and gingiva: dentition normal Throat: Yes posterior oropharynx normal and Yes tonsils normal (no TP congestion) Eyes Eyelids: Yes eyelids normal Conjunctivae: conjunctivae normal Pupils: Equal, round and reactive pupils present EOM: EOMs intact bilaterally Neck Neck: Yes no lymphadenopathy and Yes supple Thyroid: Thyroid normal Resp Auscultation: clear to auscultation bilaterally, no rales and no wheezes Cardio Rate: regular rate Rhythm: regular rhythm Heart sounds: no murmurs GI Palpation (GI): Soft to palpation, nontender and No hepatosplenomegaly present Auscultation: normal bowel sounds General: Yes no CVA tenderness Back/Spine/Pelvis Back: no CVA tenderness Cervical Spine: No Cervical spine tenderness Thoracic/Lumbar Spine: thoracic and lumbar spine normal to inspection Skin Rashes: no rashes Neuro General: patient oriented x3, moves all extremities, no focal motor deficits and CN's II-XI intact bilaterally Cranial nerves: Yes Equal, round and reactive pupils present Cognition (Neuro): normal cognition Gait exam (Neuro): Normal gait present Extrem General: Yes no clubbing, cyanosis or edema Assessment and Plan Assessment & Plan (1) Annual physical exam: Code(s): Z00.00 - Encounter for general adult medical examination without abnormal findings Plan: Check labs (2) Hidradenitis suppurativa: Code(s): L73.2 - Hidradenitis suppurativa Plan: Have advised patient that surgical intervention may not necessarily be appropri ate in her current situation as it is different from the pilonidal abscess that she had in the past Per her request, will refer her to Dr. Vasquez for evaluation but advised that Dr. Vasquez may not necessarily be able to do any surgical procedures to help her in this case Have discussed that if she has certain medical issues like diabetes, this can make her more prone to develop recurrent flare ups or outbreaks so we should check her out for any of these potential issues Will start her empirically on a trial of Doxycycline 100 mg BID x 14 days and if necessary, can also start her later on on prophylactic Tx with oral Doxycycline QD for a while, similar to what we sometimes do for patients with severe acne lesions (3) Intermittent lightheadedness: Code(s): R42 - Dizziness and giddiness Plan: Will send her for some labs DAGOBERTO for further evaluation, including her renal function, CBC and TSH (4) Smoker: Code(s): F17.200 - Nicotine dependence, unspecified, uncomplicated Plan: Counseled again on smoking cessation (5) Obesity (BMI 30-39.9): Code(s): E66.9 - Obesity, unspecified Plan: Reinforced diet/exercise as tolerated/lose weight (6) Breast cancer screening by mammogram: Code(s): Z. - Encounter for screening mammogram for malignant neoplasm of breast Plan: Will send her for repeat annual mammogram Plan Follow up in 3 months Orders: Orders MM tomosynthesis screening BI Today Z12.31 - Encounter for screening mammogram for malignant neoplasm of breast Comprehensive [place]. Panel Fast Today E78.00 - Pure hypercholesterolemia, unspecified, Z00.00 - Encounter for general adult medical examination without abnormal findings TSH reflex Free T4 Today E78.00 - Pure hypercholesterolemia, unspecified, R42 - Dizziness and giddiness, Z00.00 - Encounter for general adult medical examination without abnormal findings Vitamin D 25-OH Total Today E55.9 - Vitamin D deficiency, unspecified, Z00.00 - Encounter for general adult medical examination without abnormal findings Complete Blood Count Auto Diff Today R42 - Dizziness and giddiness, Z00.00 - Encounter for general adult medical examination without abnormal findings Lipid Panel Today E78.00 - Pure hypercholesterolemia, unspecified, Z00.00 - Encounter for general adult medical examination without abnormal findings Hemoglobin A1c Today R73.9 - Hyperglycemia, unspecified UA CC w/rflx Micro + Cult Today R30.0 - Dysuria, Z00.00 - Encounter for general adult medical examination without abnormal findings Erythrocyte Sedimentation Rate Today L73.2 - Hidradenitis suppurativa Referrals General Surgery Referral N76.4 - Abscess of vulva Medications: New doxycycline monohydrate 100 mg PO BID 14 days 28 caps 0RF Coding Level of Care Code Est Pt Prev Care 40-64y(75820) Diagnoses Annual physical exam Z00.00 Hidradenitis suppurativa L73.2 Intermittent lightheadedness R42 Smoker F17.200 Obesity (BMI 30-39.9) E66.9 Breast cancer screening by mammogram Z12.31 Additional Codes EMELIA-7 Assessment Billing - EMELIA-7 Assessment Tool: EMELIA-7 Assessment 69634 ([id number])
== END 2023-02-12 17:32 | disposition home or self-care (01) ==
LOC: HO.HMGH 16:52
PROVIDERS: PCP Internal Medicine; Visit Provider Internal Medicine
DX: Z00.00 Encounter for general adult medical examination without abnormal findings (principal); L73.2 Hidradenitis suppurativa; R42 Dizziness and giddiness; F17.200 Nicotine dependence, unspecified, uncomplicated; E66.9 Obesity, unspecified; Z12.31 Encounter for screening mammogram for malignant neoplasm of breast; Z68.32 Body mass index [BMI] 32.0-32.9, adult
CPT/HCPCS: 99396

== ENCOUNTER 2023-02-17 06:09 | Outpatient (REF) | payer OTHER, SELFPAY ==
[2023-02-17 06:20] LABS: MANUAL DIFF FLAG NO
[2023-02-17 07:21] LABS: Basophils Percent Auto 0.4 % (0-2); Eosinophils Absolute Auto 0.2 X10*3/uL (0.0-0.4); Eosinophils Percent Auto 1.9 % (0-4); Hematocrit 44.7 % (37.0-47.0); Hemoglobin 14.9 g/dl (12.0-16.0); Imm Gran Abs Auto 0.04 X10*3/uL (0.00-0.03); Imm Gran Pct Auto 0.4 % (0.0-0.4); Lymphocytes Absolute Auto 2.3 X10*3/uL (1.2-4.9); Lymphocytes Percent Auto 20.9 % (20-40); Mean Corpuscular HGB Conc 33.3 g/dl (31.0-35.0); Mean Corpuscular Hemoglobin 33.6 pg (27.0-33.0); Mean Corpuscular Volume 100.7 fL (80.0-98.0); Mean Platelet Volume 9.8 fL (9.4-12.3); Monocytes Absolute Auto 0.9 X10*3/uL (0.1-1.2); Monocytes Percent Auto 8.5 % (2-11); Neutrophils Absolute Auto 7.4 x10*3/uL (2.0-8.3); Neutrophils Percent Auto 67.9 % (45-73); Platelet Count 354 X10*3/uL (160-400); Red Blood Count 4.44 X10*6/uL (4.20-5.50); White Blood Count 10.9 X10*3/uL (4.8-10.8)
[2023-02-17 07:36] LABS: Estimated Average Glucose 97 mg/dL
[2023-02-17 07:58] LABS: Erythrocyte Sedimentation Rate 10 MM/HR (0-20)
[2023-02-17 08:14] LABS: Alanine Aminotransferase 14 U/L (0-31); Albumin Level 4.2 g/dL (3.5-5.0); Alkaline Phosphatase 76 U/L (39-117); Anion Gap 10 (12-20); Aspartate Amino Transferase 14 U/L (5-31); Bilirubin Total 0.3 mg/dL (0.0-1.0); Blood Urea Nitrogen 12 mg/dL (9-16); Calcium 9.3 mg/dL (8.4-10.2); Carbon Dioxide 26 mmol/L (22-29); Chloride 106 mmol/L (96-108); Cholesterol 217 mg/dL (<200); Estimated Glomerular Filt Rate > 60; Glucose Fasting 88 mg/dL (60-99); HDL Cholesterol 41 mg/dL (>40); LDL Cholesterol Calculated 161 mg/dL (<100); Potassium 4.4 mmol/L (3.3-5.1); Sodium 138 mmol/L (135-145); Total Protein 7.4 g/dL (6.5-8.0); Triglycerides 76 mg/dL (<150)
[2023-02-17 08:30] LABS: Appearance Urine Clear; Color Urine Yellow; Glucose Urine UA Negative (Negative); Leukocyte Esterase Urine Negative (Negative); Nitrite Urine Negative (Negative); PH 6.5 (5.0-9.0); Specific Gravity - Urine 1.015 (1.005-1.025); Urine Blood Negative (Negative); Urine Ketones Negative (Negative); Urine Protein Negative (Neg-Trace)
[2023-02-17 08:32] LABS: TSH reflex Free T4 1.44 uIU/mL (0.32-4.0); Vitamin D 25-OH Total 26.4 ng/mL (>30)
== END 2023-02-17 06:10 | disposition home or self-care (01) ==
LOC: HO.LAB 06:09
PROVIDERS: PCP Internal Medicine; Visit Provider Internal Medicine
DX: Z00.00 Encounter for general adult medical examination without abnormal findings (principal); R42 Dizziness and giddiness; E78.00 Pure hypercholesterolemia, unspecified; L73.2 Hidradenitis suppurativa; R73.9 Hyperglycemia, unspecified; R30.0 Dysuria; E55.9 Vitamin D deficiency, unspecified
CPT/HCPCS: 36415; 80053; 80061; 81003; 82306; 83036; 84443; 85025; 85652

== ENCOUNTER 2023-02-25 09:41 | Outpatient (AMB) | payer OTHER, SELFPAY ==
[2023-02-25 09:53] VITALS: BP 131/71; PULSE 75; BMI 31.7
--- NOTE | 2023-02-25 09:53 | MHC.OFFVIS ---
Intake Vital Signs 02/25/23 09:53 Height 5 ft 3 in Weight 179 lb BMI 31.7 BP 131/71 Blood Pressure Location Rt brachial Position Sitting Pulse 75 Intake Visit Reasons: abscess of vulva Intake Note: This patient presents for an assessment for abscess of the vulva. Patient c/o; reports was started on one round of abx, reports was experiencing tenderness; has diminished. 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 She has had this area of recurrent pain, swelling and occasional drainage on the suprapubic area for over a year now. She says that this would swell up at least once a month and would drain on its own or changed we resolve. She describes significant pain and tenderness when this is swollen. She denies any trauma or insect bite to the area. She does have a history of a pilonidal cyst in the sacrococcygeal area in the past this had been excised previously. [facility], [facility] Medical History (Updated 02/25/23 @ 10:21 by Giancarlo Vasquez MD) Epidermal cyst Anxiety Migraine Obesity (BMI 30-39.9) Smoker Hidradenitis suppurativa Sacroiliac joint dysfunction Panic attack Tinea versicolor Surgical History History of excision of pilonidal cyst (~08/12/21) H/O rectal sphincterotomy History of bilateral tubal ligation History of Family History Maternal Grandmother Breast cancer Other Mental health problem Substance abuse Social History Housing: Apartment Alcohol intake: never Patient Tobacco Use Status: Current everyday Tobacco user Tobacco use type: Cigar Cigarettes Per Day: 10 e-Cigarette/Vaping Use: Never Used Second Hand Smoke Exposure: Yes service: No Current occupational status: employed Sexual orientation: Straight/Heterosexual Gender identity: Female Cognitive needs: No Hearing needs: No Vision needs: No Review of Systems Const Denies chills and Denies fever(s) Card Denies chest pain, Denies dyspnea and Denies dyspnea on exertion Resp Denies cough, Denies dyspnea and Denies dyspnea on exertion GI Denies hematochezia and Denies change in bowel habits Denies hematuria Musc Denies back pain and Denies limited range of motion Neuro Denies focal weakness and Denies convulsions Psych Denies depression and Denies mood swings Physical Exam Vital Signs: Last Vital Signs Pulse 75 02/25/23 09:53 BP 131/71 02/25/23 09:53 BMI result Body Mass Index 31.7 Const General: comfortable and no acute distress Orientation/consciousness: patient oriented x3 Neck Neck: Yes no lymphadenopathy Resp Auscultation: clear to auscultation bilaterally Cardio Rhythm: regular rhythm GI Palpation (GI): Soft to palpation, nontender and no guarding Other: On the suprapubic area is note of a tender induration, about 2.5 cm, nonfluctuant, soft, no active discharge Neuro General: patient oriented x3 Assessment & Plan Assessment & Plan (1) Epidermal cyst: Code(s): L72.0 - Epidermal cyst Plan: She has what appears to be a large epidermal cyst on the suprapubic area with recurrent swelling and drainage. She wants this excised. I explained the technique of excision which she wants under anesthesia because of size and significant pain. I reviewed the risks including but not limited to bleeding, infections, poor healing, postop pain, as well as the benefits and alternatives. She also understands what to expect postoperatively . Coding Level of Care Code Est Pt Level 3 (45062) Diagnoses Epidermal cyst L72.0
== END 2023-02-25 10:18 | disposition home or self-care (01) ==
PROVIDERS: PCP Internal Medicine; Visit Provider Surgery
DX: L72.0 Epidermal cyst (principal)
CPT/HCPCS: 99213

== ENCOUNTER → 2023-02-25 09:41 | Outpatient (BNVA) | payer OTHER, SELFPAY | PROVIDERS: PCP Internal Medicine; Visit Provider Surgery | DX: L72.0 Epidermal cyst (principal) | CPT/HCPCS: 99212 ==

== ENCOUNTER → 2023-03-06 10:00 | Outpatient (BNV) | payer OTHER, SELFPAY | PROVIDERS: PCP Internal Medicine; Visit Provider Radiology Diagnostic Radiology | DX: Z12.31 Encounter for screening mammogram for malignant neoplasm of breast (principal) | CPT/HCPCS: 77063; 77067 ==

== ENCOUNTER 2023-03-06 10:08 | Outpatient (REF) | payer OTHER, SELFPAY | END 2023-03-06 10:09 | disposition home or self-care (01) | LOC: HO.MAMMO 10:08 | PROVIDERS: PCP Internal Medicine; Visit Provider Internal Medicine | DX: Z12.31 Encounter for screening mammogram for malignant neoplasm of breast (principal) | CPT/HCPCS: 77063; 77067 ==

== ENCOUNTER 2023-03-12 08:50 | Day surgery (SDC) | payer OTHER, SELFPAY ==
[2023-03-09 11:14] VITALS: BMI 31.7
--- NOTE | 2023-03-11 10:11 | P.CONAN_ITS ---
Documented by User: Ronda Thompson NP 03/11/23 10:12 HPI - Anesthesia Eval Consult details Narrative: 42yo F for Excision Cyst pubic area s/p tubal PMFSH Active Problems Active Problems: All Active Problems (Updated 02/25/23 @ 10:21 by Giancarlo Vasquez MD) Epidermal cyst (Acute) Anxiety (Acute) Migraine (Acute) Breast cancer screening by mammogram (Acute) Obesity (BMI 30-39.9) (Acute) Smoker (Acute) Hidradenitis suppurativa (Acute) Intermittent lightheadedness (Acute) Annual physical exam (Acute) Suppurative hidradenitis (Acute) Labial abscess (Acute) Vulvar abscess (Acute) Cyst, pilonidal, with abscess (Acute) Hidradenitis axillaris (Acute) Chronic recurrent pilonidal cyst (Acute) Bacterial vaginosis (Acute) Vulvar lesion (Acute) Hot flashes (Acute) Well woman exam (Acute) Past Medical History Medical History Epidermal cyst Anxiety Migraine Obesity (BMI 30-39.9) Smoker Hidradenitis suppurativa Sacroiliac joint dysfunction Panic attack Tinea versicolor Family History Family History Maternal Grandmother Breast cancer Other Mental health problem Substance abuse Family history of problems with anesthesia: No Surgical History Surgical History History of excision of pilonidal cyst (~08/12/21) H/O rectal sphincterotomy History of bilateral tubal ligation History of History of Problems with Anesthesia: No Social History Social History Housing: Apartment Alcohol intake: never Patient Tobacco Use Status: Current everyday Tobacco user Tobacco use type: Cigar Cigarettes Per Day: 10 e-Cigarette/Vaping Use: Never Used Second Hand Smoke Exposure: Yes Advance Directives: No Advance Directives Information Provided: Yes service: No Current occupational status: employed Sexual orientation: Straight/Heterosexual Gender identity: Female Cognitive needs: No Hearing needs: No Vision needs: No Meds Allergies Allergy/AdvReac Type Severity Reaction Status Date / Time lorazepam AdvReac Intermediate increased Verified 02/25/23 10:03 nausea Home Medications Medication Instructions Recorded Confirmed Last Taken Type levonorgestrel 21 mcg/24 hours (8 intrauterine 01/29/23 02/25/23 Unknown History yrs) 52 mg intrauterine device (Mirena) Exam Exam Date and Time: March 11, 2023 1011 Height,Weight and Vital Signs: Height 5 ft 3 in Weight 81.193 kg Pertinent Lab Results Pertinent Lab Results: Laboratory Tests 02/17/23 06:18 WBC 10.9 H Hgb 14.9 Hct 44.7 Plt Count 354 Sodium 138 Potassium 4.4 Chloride 106 Carbon Dioxide 26 BUN 12 Creatinine 0.71 Assessment and Plan Final Anesthetic Review Family History of Problems with Anesthesia: No History of Problems with Anesthesia: No Documented by User: Keesha Hodge MD 03/12/23 10:47 [facility] Past Medical History Medical History Epidermal cyst Anxiety Migraine Obesity (BMI 30-39.9) Smoker Hidradenitis suppurativa Sacroiliac joint dysfunction Panic attack Tinea versicolor Family History Family History Maternal Grandmother Breast cancer Other Mental health problem Substance abuse Surgical History Surgical History History of excision of pilonidal cyst (~08/12/21) H/O rectal sphincterotomy History of bilateral tubal ligation History of Social History Social History Housing: Apartment Alcohol intake: never Patient Tobacco Use Status: Current everyday Tobacco user Tobacco use type: Cigar Cigarettes Per Day: 10 e-Cigarette/Vaping Use: Never Used Second Hand Smoke Exposure: Yes Advance Directives: No Advance Directives Information Provided: Yes service: No Current occupational status: employed Sexual orientation: Straight/Heterosexual Gender identity: Female Cognitive needs: No Hearing needs: No Vision needs: No Meds Allergies Allergy/AdvReac Type Severity Reaction Status Date / Time lorazepam AdvReac Intermediate increased Verified 02/25/23 10:03 nausea Home Medications Medication Instructions Recorded Confirmed Last Taken Type levonorgestrel 21 mcg/24 hours (8 intrauterine 01/29/23 02/25/23 Unknown History yrs) 52 mg intrauterine device (Mirena) Exam Airway Mallampati Class: II TM Dist: >3cm Neck ROM: Full Heart: rrr Lungs: cta Assessment and Plan Assessment Anesthesia Assessment: Anesthesia Plan Discussed Final Anesthetic Review NPO: Yes ASA Class: III Final Preanesthetic Review: No Changes in Pt Med Stat, Meds/Allgs Chart Reviewed, Consent Obtained/Reviewed and Anes Risks/Benef Reviewed Patient Risk: Intermediate Procedure Risk: Low Anesthetic Plan Anesthetic Plan: MAC: Disposition: Standard PACU
[2023-03-12 10:38] VITALS: BP 126/66; PULSE 67; RESP 16; TEMP 36.1; O2SAT 100; BMI 31.0
--- NOTE | 2023-03-12 10:51 | PC.NURSE ---
Addendum entered by Donna Arvizu 03/12/23 11:19: In further discussion with patient she states I filled out that paperwork before I had kids, and it is not something I want active anymore . Situation discussed with patient and Dr. Hodge at bedside. Patient deemed a FULL CODE. Original Note: Patient states she has filled out paperwork for DNR/DNI code status in [place]. Patient states It was filled out with my doctor and my mother was the witness . Reversal paperwork left for anesthesia. Dr. Hodge made aware.
[2023-03-12] MEDS: Lactated Ringers 1,000 ML 100 ML IVCONT (11:04)
--- NOTE | 2023-03-12 11:09 | MHC.SHP ---
Pre-Procedural Eval Section A Date of Service: 03/12/23 The patient is an INPATIENT: No Changes since office visit: No Cold of Flu in the past 2 weeks, No New Medical Problems, No Changes in Medication and No Patient answered all questions The History & Physical has been completed within 30 days and I have reviewed it.: Yes Section B Chief Complaint: Epidermal cyst Allergies: Allergies Allergy/AdvReac Type Severity Reaction Status Date / Time lorazepam AdvReac Intermediate increased Verified 02/25/23 10:03 nausea Plan I have reviewed the history and physical and performed a pertinent physical examination on my patient. No changes have occurred unless specified. Time Spent With Patient Time: Total time managing care of this patient today ____ minutes.
--- NOTE | 2023-03-12 12:08 | W.PM.OPN ---
Operative Note Operative Note Date of Service: 03/12/23 Narrative: Preop diagnosis: Epidermal cyst on the pubic area Postop diagnosis: The same Procedure: Excision of epidermal cyst from the pubic area under monitored anesthesia care Surgeon: Giancarlo Vasquez MD The patient is a 42 year female with note of recurrent area of pain, swelling tenderness on the pubic area to the left of the midline. She understood the technique of excision and wanted this under anesthesia in view of her anxiety and anticipated pain. She understood the risks, benefits, and alternatives She was brought to the operating room. She was placed supine under monitored anesthesia care. The left leg was abducted to expose the area of the cyst. This area was prepped and draped. Lidocaine 1% was used for local anesthesia. A surgical time-out had been done. The patient received cefazolin 2 g preop. The indurated area was about 2.5 cm in diameter consistent with a ruptured epidermal cyst. I infiltrated the planned line of incision with lidocaine 1%. I carried down this incision through the full-thickness of the skin and deep subcutaneous fat to excise the entire indurated area using cautery. This was sent as specimen. The incision was about 3 cm long. I irrigated the area of excision. I closed the incision with full-thickness nylon 3-0 interrupted sutures. Dressings were applied. I infiltrated the area with Marcaine 0.5% for postop analgesia. The procedure was completed. She tolerated procedure well. There were no immediate complications. She was transferred to recovery room with stable vital signs. There was minimal blood loss.
[2023-03-12 12:15] VITALS: BP 96/49; PULSE 59; RESP 10; TEMP 36.6; O2SAT 98
[2023-03-12 12:25] VITALS: RESP 16
[2023-03-12 12:30] VITALS: BP 99/60; PULSE 59; RESP 16; TEMP 36.6; O2SAT 98
== END 2023-03-12 13:46 | disposition home or self-care (01) ==
PROVIDERS: PCP Internal Medicine; Visit Provider Surgery
PROC: (CPT 11423; principal; 2023-03-12 11:20)
DX: N90.7 Vulvar cyst (principal); L72.0 Epidermal cyst; Z79.899 Other long term (current) drug therapy; Z88.8 Allergy status to other drugs, medicaments and biological substances; F17.210 Nicotine dependence, cigarettes, uncomplicated
CPT/HCPCS: 11423; 12042; 88304; J0690; J3010

== ENCOUNTER → 2023-03-12 08:50 | Outpatient (BNV) | payer OTHER, SELFPAY | PROVIDERS: PCP Internal Medicine; Visit Provider Surgery | DX: L72.0 Epidermal cyst (principal) | CPT/HCPCS: 11423 ==

== ENCOUNTER 2023-03-25 09:44 | Outpatient (AMB) | payer OTHER, SELFPAY ==
--- NOTE | 2023-03-25 09:58 | A.OFFVIS_ITS ---
Intake Vital Signs 03/25/23 09:58 Height 5 ft 3 in Intake Visit Reasons: S/p exc cyst pubic area Intake Note: This patient presents for a post-op assessment status post excision cyst of pubic region. Patient c/o; reports no complaints at this time. 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 She tolerated the procedure well. She currently denies significant complaints. [facility] Medical History Epidermal cyst Anxiety Migraine Obesity (BMI 30-39.9) Smoker Hidradenitis suppurativa Sacroiliac joint dysfunction Panic attack Tinea versicolor Surgical History History of excision of pilonidal cyst (~08/12/21) H/O rectal sphincterotomy History of bilateral tubal ligation History of Family History Maternal Grandmother Breast cancer Other Mental health problem Substance abuse Social History Housing: Apartment Alcohol intake: never Patient Tobacco Use Status: Current everyday Tobacco user Tobacco use type: Cigarette Cigarette Packs Per Day: 0.5 Cigarettes Per Day: 10.0 Years Smoked: 25 e-Cigarette/Vaping Use: Never Used Second Hand Smoke Exposure: Yes service: No Current occupational status: employed Sexual orientation: Straight/Heterosexual Gender identity: Female Cognitive needs: No Hearing needs: No Vision needs: No Review of Systems Const Denies chills and Denies fever(s) Card Denies chest pain, Denies dyspnea and Denies dyspnea on exertion Resp Denies cough, Denies dyspnea and Denies dyspnea on exertion GI Denies hematochezia and Denies change in bowel habits Denies hematuria Musc Denies back pain and Denies limited range of motion Neuro Denies focal weakness and Denies convulsions Psych Denies depression and Denies mood swings Physical Exam Const General: comfortable and no acute distress Resp Effort & Inspection: normal respiratory effort Other: suprapubic incision is well healed, not infected, sutures intact Assessment & Plan Assessment & Plan (1) Epidermal cyst: Code(s): L72.0 - Epidermal cyst Plan: status post excision. Her incision is well healed. I removed her sutures. Her path report shows what appears to be of ruptured epidermal cyst although h idradenitis cannot be ruled out . She can follow up on a p.r.n. basis. Coding Level of Care Code Global (65800) Diagnoses Epidermal cyst L72.0
== END 2023-03-25 10:08 | disposition home or self-care (01) ==
PROVIDERS: PCP Internal Medicine; Visit Provider Surgery
DX: L72.0 Epidermal cyst (principal)
CPT/HCPCS: 99024

== ENCOUNTER → 2023-03-25 09:44 | Outpatient (BNVA) | payer OTHER, SELFPAY | PROVIDERS: PCP Internal Medicine; Visit Provider Surgery ==

== ENCOUNTER 2023-04-23 14:23 | Outpatient (AMB) | payer OTHER, SELFPAY ==
--- NOTE | 2023-04-23 14:31 | A.OFFVIS_ITS ---
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 [facility] Medical History Epidermal cyst Anxiety Migraine Obesity (BMI 30-39.9) Smoker Hidradenitis suppurativa Sacroiliac joint dysfunction Panic attack Tinea versicolor Surgical History History of excision of pilonidal cyst (~08/12/21) H/O rectal sphincterotomy History of bilateral tubal ligation History of Family History Maternal Grandmother Breast cancer Other Mental health problem Substance abuse Social History Housing: Apartment Alcohol intake: never Patient Tobacco Use Status: Current everyday Tobacco user Tobacco use type: Cigarette Cigarette Packs Per Day: 0.5 Cigarettes Per Day: 10.0 Years Smoked: 25 e-Cigarette/Vaping Use: Never Used Second Hand Smoke Exposure: Yes service: No Current occupational status: employed Sexual orientation: Straight/Heterosexual Gender identity: Female Cognitive needs: No Hearing needs: No Vision needs: No Female Reproductive History Menstrual control method: progestin IUCD (Mirena 04/23/23) Physical Exam Vital Signs: Last Vital Signs BP 112/74 04/23/23 14:40 BMI result Body Mass Index 34.4 Office Procedures IUD Insert/Removal Details Procedure code (CPT) selection complete Contraception Insert/Removal Details Details: The patient is here today for a Mirena removal/ reinsertion. She was counseled on the side effects including: menstrual cycle changes, pain, infection, bleeding, or expulsion. A urine test was completed and was negative. She was consented for the IUD insertion and has signed the consent form. All questions were answered. The patient was placed in the dorsal lithotomy position. A speculum was inserted vaginally and the cervix and strings were visualized at the os. A ring forcep was utilized, and the patient was asked to give a deep cough while the strings were grasped and gently tugged at the same time, removing the IUD device intact. A single toothed tenaculum was applied to the cervix for stabilization, and the uterus was sounded to 8.5cm. The device was inserted and released with a gentle motion. Bleeding from the tenaculum sites and the procedure were minimal. The strings were trimmed to 3cm. All of the equipment was removed and the bimanual was normal, no tip was palpable at the cervical os. The patient tolerated the procedure well and left the office in good condition. Post IUD Insertion Care: There may be some post insertion bleeding for several days that is usually light and can turn to a light brown or pink in color. Mild cramping may occur. Nothing in the vagina including: tampons, douching or intimacy for several days. You may take an over the counter mild analgesia like Tylenol or Advil (if no allergies), per the manufacturers recommendations on dosing and frequency. Follow the directions completely. Call the office if any: fever (over 100.4), flu like symptoms, abdominal pain, worsening cramping not resolved with over the counter medications, foul smelling vaginal odor, signs of infected appearing discharge, or heavy bleeding. Use a condom for a back up method if indicated for 7 days. 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 Return to the office in 4-6 weeks. Orders: Orders AMB HCG Urine Test Today Z32.02 - Encounter for test, result negative AMB IUD Insertion/Removal - Practice Supplied Today Z30.430 - Encounter for insertion of intrauterine contraceptive device Coding Level of Care Code Procedure Only Diagnoses Encounter for IUD removal and reinsertion Z30.433 CPT Codes Details - Contraception: 98814 - Insertion and Removal ([id number])
[2023-04-23 14:40] VITALS: BP 112/74; BMI 34.4
== END 2023-04-23 15:07 | disposition home or self-care (01) ==
PROVIDERS: PCP Internal Medicine; Visit Provider Advanced Practice Midwife
DX: Z30.430 Encounter for insertion of intrauterine contraceptive device (principal); Z32.02 Encounter for pregnancy test, result negative
CPT/HCPCS: 58300; 58301

== ENCOUNTER → 2023-04-23 14:23 | Outpatient (BNVA) | payer OTHER, SELFPAY | PROVIDERS: PCP Internal Medicine; Visit Provider Advanced Practice Midwife | DX: Z30.433 Encounter for removal and reinsertion of intrauterine contraceptive device (principal) | CPT/HCPCS: 58300; 58301; 81025; J7298 ==